=== PATIENT | female | born 1970 | race Caucasian/White ===

== ENCOUNTER 2021-03-28 06:01 | Day surgery (SDC) | payer OTHER ==
[~2021-03-28] VITALS: Ht 157.5 cm; Wt 55.8 kg
[2021-03-28 06:33] LABS: BASOPHILS % (AUTO) 0.5 % (0.0-2.0); EOSINOPHILS # (AUTO) 0.1 K/uL (0-0.4); EOSINOPHILS % (AUTO) 1.1 % (0.0-4.0); HEMATOCRIT 37.9 % (36-48); HEMOGLOBIN 12.8 g/dL (12.0-16.0); LYMPHOCYTES # (AUTO) 1.8 K/uL (2.5-16.5); LYMPHOCYTES % (AUTO) 33.7 % (20.5-51.1); MEAN CORPUSCULAR HEMOGLOBIN 33 pg (27-31); MEAN CORPUSCULAR HGB CONC 34 g/dL (33-37); MEAN CORPUSCULAR VOLUME 98.2 fL (80-94); MONOCYTES # (AUTO) 0.5 K/uL (0.8-1.0); MONOCYTES % (AUTO) 9.6 % (1.7-9.3); NEUTROPHILS % (AUTO) 55.1 % (42.2-75.2); PLATELET COUNT (AUTO) 309 K/uL (140-450); RED BLOOD CELL COUNT(AUTO) 3.86 MIL/uL (4.20-5.40); RED CELL DISTRIBUTION WIDTH 14.2 % (11.6-13.7); WHITE BLOOD COUNT (AUTO) 5.4 K/uL (4.8-10.8)
[2021-03-28 06:45] LABS: ANION GAP 13.2 (8-16); CARBON DIOXIDE 25.4 mmol/L (21-32); POTASSIUM 3.6 mmol/L (3.5-5.1)
[2021-03-28] MEDS ORDERED: LIDOCAINE 1% 500 MG/50 ML VIAL ONE (07:40)
[2021-03-28] MEDS ORDERED: BUPIVACAINE-MPF 0.25% 30 ML VIAL INJ ONE (07:40)
[2021-03-28] MEDS ORDERED: GELATIN SPONGE 100 1 SPG TP ONE (07:41)
[2021-03-28] MEDS ORDERED: ceFAZolin 1,000 MG VIAL ONE (07:50)
[2021-03-28] MEDS ORDERED: fentaNYL citrate 0.05 MG/ML VIAL ONE ×2 (07:50→07:55)
[2021-03-28] MEDS ORDERED: PROPOFOL 200 MG/20 ML VIAL IV ONE (07:50)
[2021-03-28] MEDS ORDERED: MIDAZOLAM 2 MG/2 ML VIAL ONE ×2 (07:50→07:55)
[2021-03-28] MEDS ORDERED: HYDROmorphone 1 MG/ML AMP IVP PRN (09:05)
[2021-03-28] MEDS ORDERED: MEPERIDINE 25 MG/ML SYR IVP PRN (09:05)
[2021-03-28] MEDS ORDERED: ONDANSETRON 4 MG/2 ML VIAL IVP PRN (09:05)
== END 2021-03-28 10:30 | disposition home or self-care (01) ==
LOC: MDS 06:01 → MMU 06:02 → MDS 10:30
PROVIDERS: ATTEND Surgery
DX: A63.0 Anogenital (venereal) warts (principal); I10 Essential (primary) hypertension; Z79.899 Other long term (current) drug therapy; Z20.822 Contact with and (suspected) exposure to COVID-19
CPT/HCPCS: 36415; 46922; 71045; 80048; 81025; 85025; 87426; J0690; J2001; J2250; J2704; J3010; J3490; J7120